=== PATIENT | female | born 2000 | race Two or more races ===

== ENCOUNTER 2021-09-22 16:19 | Observation (INO) | payer SELFPAY ==
[2021-09-22] MEDS ORDERED: IV RINGERS,LACTATED 1000ML 1,000 ML IV SCH (16:45)
[2021-09-22 17:05] LABS: BILIRUBIN,URINE NEGATIVE (NEG); CLARITY,URINE CLOUDY; COLOR,URINE YELLOW; NITRITE,URINE NEGATIVE (NEG); PH,URINE 6.5 (<5.0-8.0); PROTEIN,URINE NEGATIVE (NEG-TRACE); UROBILINOGEN,URINE 0.2 mg/dL (0.2 mg/dL)
[2021-09-22 17:21] LABS: BACTERIA,URINE FEW /HPF (0-FEW); RBC,URINE 0 /HPF (0-2)
--- NOTE | 2021-09-22 17:26 | RAD ---
EXAM: OB ULTRASOUND, > 14 WEEKS HISTORY: JAY assessment. COMPARISON: None.. TECHNIQUE: Multiple grayscale images, color Doppler, and M-mode images of the uterus are obtained. FINDINGS: There is a single intrauterine gestation in cephalic presentation. The placenta is grade 2 and anteri or in location without evidence of placenta previa. The amount of amniotic fluid appears appropriate. Amniotic fluid index is 11.0 cm. The cervix is obscured Biometrical data: BPD = 9.66 cm for 39 weeks 3 days. HC = 33.59 cm for 38 weeks 3 days. AC = 33.80 cm for 37 weeks 5 days. FL = 7.32 cm for 37 weeks 3 days. HC/AC ratio = 0.99. Overall, the estimated sonographic gestational age is 38 weeks and 2 days for an estimated date of de livery of 10/04/2021. The estimated date of delivery provided by the last menstrual period is 09/17/20 21. Estimated weight is 3354 grams. This is at the 40th percentile for a gestational age of 40 weeks and 5 days based on LMP. The heart rate is 147 bpm. The anatomy is not formally assessed on this exam. The materna l adnexal regions are not assessed. IMPRESSION: 1. Single intrauterine fetus in cephalic presentation with normal heart rate and gestational age base d on ultrasound measurements of 38 weeks and 2 days. The estimated weight is at the 40th percen tile for a gestational age of 40 weeks and 5 days based on LMP. 2. Normal JAY of 11.0 cm. 3. Note is made that the anatomy is not formally assessed on this exam. Electronically signed by: Deya Guevara MD (09/22/2021 5:23 PM) [id number]
[2021-09-22 17:38] LABS: AMNIO PT NEGATIVE
== END 2021-09-22 18:10 | disposition home or self-care (01) ==
LOC: 3 SO LND 16:19
PROVIDERS: ADMIT Obstetrics & Gynecology; ATTEND Obstetrics & Gynecology
DX: O42.92 Full-term premature rupture of membranes, unspecified as to length of time between rupture and onset of labor (principal); O62.9 Abnormality of forces of labor, unspecified; Z3A.39 39 weeks gestation of pregnancy; Z79.899 Other long term (current) drug therapy
CPT/HCPCS: 36415; 59025; 76815; 81001; 84112; 87086; G0378; G0379

== ENCOUNTER 2021-09-28 00:13 | Observation (INO) | payer SELFPAY ==
[2021-09-28 01:15] LABS: BILIRUBIN,URINE NEGATIVE (NEG); CLARITY,URINE CLOUDY; COLOR,URINE YELLOW; NITRITE,URINE NEGATIVE (NEG); PH,URINE 6.5 (<5.0-8.0); PROTEIN,URINE NEGATIVE (NEG-TRACE); UROBILINOGEN,URINE 0.2 mg/dL (0.2 mg/dL)
[2021-09-28] MEDS ORDERED: IV RINGERS,LACTATED 1000ML 1,000 ML IV SCH (01:15)
[2021-09-28 01:28] LABS: AMORPHOUS SEDIMENT,UR PRESENT /HPF; BACTERIA,URINE MODERATE /HPF (0-FEW); RBC,URINE OCC /HPF (0-2)
[2021-09-28 01:35] LABS: BARBITURATES NEG (NEG); BENZODIAZEPINES NEG (NEG); CANNABINOIDS NEG (NEG); COCAINE NEG (NEG); METHADONE NEG (NEG); OPIATES NEG (NEG); PHENCYCLIDINE NEG (NEG)
[2021-09-28 01:36] LABS: AMPHETAMINE/METHAMPHETAMINE NEG (NEG)
== END 2021-09-28 09:30 | disposition home or self-care (01) ==
LOC: 3 SO LND 00:13
PROVIDERS: ADMIT Obstetrics & Gynecology; ATTEND Obstetrics & Gynecology
DX: O62.9 Abnormality of forces of labor, unspecified (principal); O26.893 Other specified pregnancy related conditions, third trimester; R10.11 Right upper quadrant pain; Z3A.39 39 weeks gestation of pregnancy; Z79.899 Other long term (current) drug therapy
CPT/HCPCS: 59025; 80307; 81001; 87086; G0378; G0379